=== PATIENT | female | born 1970 | race Caucasian/White ===

== ENCOUNTER 2022-04-19 06:16 | Observation (INO) | payer BC ==
[2022-04-14 14:17] VITALS: BMI 34.3
[2022-04-19] MEDS ORDERED: Oxymetazoline HCl 0.05% ( 15 ML ) ONE ×2 (07:19→07:43)
[2022-04-19] MEDS ORDERED: Scopolamine 1.5 mg/72 hour Patch ONE (07:20)
[2022-04-19] MEDS ORDERED: Midazolam HCl 2 mg/2 ml Vial ONE ×2 (07:34→07:45)
[2022-04-19] MEDS ORDERED: Ondansetron PF 4 MG/2 ML Vial IVP PRN (07:44)
[2022-04-19] MEDS ORDERED: Acetaminophen 325 MG TAB PO PRN (07:44)
[2022-04-19] MEDS ORDERED: Lidocaine 1% w/Epinephrine 1:100K 20 ML VIAL ONE (07:44)
[2022-04-19] MEDS ORDERED: Fentanyl 250 MCG/5 ML VIAL ONE (07:45)
[2022-04-19] MEDS ORDERED: Lidocaine 1% PF 5 ML VIAL ONE (07:45)
[2022-04-19] MEDS ORDERED: PROPOFOL 20 ML ONE (07:45)
[2022-04-19] MEDS ORDERED: Ondansetron PF 4 MG/2 ML Vial ONE (07:45)
[2022-04-19] MEDS ORDERED: Rocuronium Bromide 10 MG/ML (10ML VIAL) ONE (07:45)
[2022-04-19] MEDS ORDERED: Glycopyrrolate 0.2 MG/ML 5 ML SYRINGE ONE (07:46)
[2022-04-19] MEDS ORDERED: Dexamethasone 20 MG/5 ML VIAL ONE (07:46)
[2022-04-19] MEDS ORDERED: Oxymetazoline HCl 0.05% ( 15 ML ) NASAL PRN (07:48)
[2022-04-19] MEDS ORDERED: Ibuprofen 400 MG TAB PO PRN (07:50)
[2022-04-19] MEDS ORDERED: Acetaminophen/Codeine 30-300mg Tablet PO PRN (07:50)
[2022-04-19] MEDS ORDERED: Mupirocin 2% Ointment 22 GM Tube ONE (08:44)
[2022-04-19] MEDS ORDERED: [UNRECOGNIZED DRUG - OTHER] PO SCH (09:00)
[2022-04-19] MEDS ORDERED: LEVOTHYROXINE SODIUM PO SCH (09:00)
[2022-04-19] MEDS: Sodium Chloride 0.65% Nasal 44 ML BOT EA NARE SCH ×3 (11:23→21:13)
[2022-04-19] MEDS: Acetaminophen/Codeine 30-300mg Tablet PO PRN ×2 (11:58→17:11)
[2022-04-19] MEDS ORDERED: Metoprolol Tartrate 50 MG TAB PO SCH (12:00)
[2022-04-19] MEDS: Bupropion 150 MG XL TAB PO SCH (12:03)
[2022-04-19] MEDS ORDERED: Amitriptyline HCl 10 MG TAB PO SCH (21:00)
[2022-04-19] MEDS ORDERED: Famotidine 20 MG TAB PO SCH (21:00)
[2022-04-19] MEDS ORDERED: Estradiol 1 MG TAB PO SCH (21:00)
[2022-04-19] MEDS: AMOXicillin 250 MG CAP PO SCH (21:13)
[2022-04-20] MEDS: Ondansetron ODT 4 MG TAB PO PRN ×2 (01:58→10:00)
[2022-04-20] MEDS: Acetaminophen/Codeine 30-300mg Tablet PO PRN (05:03)
[2022-04-20] MEDS: AMOXicillin 250 MG CAP PO SCH (09:59)
[2022-04-20] MEDS: Bupropion 150 MG XL TAB PO SCH (09:59)
[2022-04-20] MEDS: Sodium Chloride 0.65% Nasal 44 ML BOT EA NARE SCH (10:00)
[2022-04-20 12:21] VITALS: BP 153/89; TEMP 98.5
== END 2022-04-20 11:00 | disposition home or self-care (01) ==
LOC: CSHSDC 06:16 → CSHTELE 10:31
PROVIDERS: ADMIT Otolaryngology Otolaryngic Allergy; ATTEND Otolaryngology Otolaryngic Allergy
PROC: 09SM0ZZ Reposition Nasal Septum, Open Approach (ICD-10-PCS; principal; 2022-04-19)
PROC: 09BL0ZZ Excision of Nasal Turbinate, Open Approach (ICD-10-PCS; 2022-04-19)
DX: J34.2 Deviated nasal septum (principal); J34.3 Hypertrophy of nasal turbinates; J34.89 Other specified disorders of nose and nasal sinuses; R09.81 Nasal congestion; G47.33 Obstructive sleep apnea (adult) (pediatric); J32.9 Chronic sinusitis, unspecified; J30.9 Allergic rhinitis, unspecified; E03.9 Hypothyroidism, unspecified; I10 Essential (primary) hypertension; Z20.822 Contact with and (suspected) exposure to COVID-19
CPT/HCPCS: G0378; J1100; J2250; J2405; J2704; J3010; Q0162